=== PATIENT | male | born 1985 | race Caucasian/White ===

== ENCOUNTER 2022-02-07 13:47 | Emergency (ER) | payer MEDICARE, OTHER ==
[~2022-02-07] VITALS: Ht 185.4 cm; Wt 104.3 kg
[~2022-02-07 13:47] MED LIST: OMEP40CA PO
--- NOTE | 2022-02-07 14:10 | NUR ---
PT LAYING IN BED IN SEMIFOWLERS POSITION; A/O X4. VSS
[2022-02-07] MEDS ORDERED: diphenhydrAMINE 50 MG/1 ML VIAL ONE (14:11)
[2022-02-07] MEDS ORDERED: METHOCARBAMOL 500 MG TABLET ONE (14:11)
[2022-02-07] MEDS ORDERED: MAGNESIUM SULFATE/D5W 100 ML ONE ×2 (14:11→15:28)
[2022-02-07] MEDS ORDERED: METOCLOPRAMIDE HCL 10 MG/2 ML VIAL ONE (14:11)
[2022-02-07] MEDS ORDERED: diphenhydrAMINE 50 MG/1 ML VIAL IV ONE (14:15)
[2022-02-07] MEDS ORDERED: METHOCARBAMOL 500 MG TABLET PO ONE (14:15)
[2022-02-07] MEDS ORDERED: METOCLOPRAMIDE HCL 10 MG/2 ML VIAL IV ONE (14:15)
--- NOTE | 2022-02-07 14:28 | NUR ---
PT TO CT SCAN
[2022-02-07] MEDS: MAGNESIUM SULFATE/D5W 100 ML IV SCH ×3 (14:30→15:52)
--- NOTE | 2022-02-07 16:09 | NUR ---
pt states headache improved 6/10 throbbing. denies any other neuro symptoms. Pt reports no nausea and vomiting.
[2022-02-07 17:03] VITALS: BP 135/85
--- NOTE | 2022-02-07 17:03 | NUR ---
IV removed. Catheter intact and site benign. Pressure and 4x4 gauze applied to site. No bleeding noted.Patient discharged to home in stable condition. Written and verbal after care instructions given. Patient verbalizes understanding of instructions. Stressed follow up or return to ER for worsening s/s.
== END 2022-02-07 17:00 | disposition home or self-care (01) ==
LOC: ER 13:47
DX: S06.0X0A Concussion without loss of consciousness, initial encounter (principal); R40.2362 Coma scale, best motor response, obeys commands, at arrival to emergency department; R40.2142 Coma scale, eyes open, spontaneous, at arrival to emergency department; R40.2252 Coma scale, best verbal response, oriented, at arrival to emergency department; V43.62XA Car passenger injured in collision with other type car in traffic accident, initial encounter; Y92.410 Unspecified street and highway as the place of occurrence of the external cause; K58.9 Irritable bowel syndrome, unspecified; Z88.6 Allergy status to analgesic agent; Z88.8 Allergy status to other drugs, medicaments and biological substances; R03.0 Elevated blood-pressure reading, without diagnosis of hypertension; M48.02 Spinal stenosis, cervical region
CPT/HCPCS: 99285; 70450; 96365; 96375; 72125; J1200; J3475 ×2; J2765; A4663

== ENCOUNTER 2022-06-15 20:54 | Emergency (ER) | payer OTHER, MEDICARE ==
[~2022-06-15] VITALS: Ht 185.4 cm; Wt 102.1 kg
[2022-06-15] MEDS ORDERED: IBUPROFEN 800 MG TABLET PO ONE (22:00)
[2022-06-15] MEDS ORDERED: ONDANSETRON HCL 4 MG TABLET PO ONE (22:00)
[2022-06-15] MEDS ORDERED: ONDANSETRON HCL 4 MG TABLET ONE (22:11)
[2022-06-15] MEDS ORDERED: IBUPROFEN 800 MG TABLET ONE (22:11)
[2022-06-15] MEDS ORDERED: IBUP-1957 PO (23:18)
[2022-06-15] MEDS ORDERED: ONDA4TAB5 PO (23:18)
--- NOTE | 2022-06-15 23:48 | NUR ---
Patient discharged to home in stable condition. Written and verbal after care instructions given. Patient verbalizes understanding of instructions. Stressed follow up or return to ER for worsening s/s. Patient walked out with steady gait accompaqinied by his S/O.
[2022-06-16 03:14] VITALS: BP 128/85
== END 2022-06-15 23:49 | disposition home or self-care (01) ==
LOC: ER 20:54
DX: M54.2 Cervicalgia (principal); R51.9 Headache, unspecified; Z88.8 Allergy status to other drugs, medicaments and biological substances; Z79.1 Long term (current) use of non-steroidal anti-inflammatories (NSAID); Z79.899 Other long term (current) drug therapy; V49.9XXA Car occupant (driver) (passenger) injured in unspecified traffic accident, initial encounter; Y93.89 Activity, other specified; Y92.89 Other specified places as the place of occurrence of the external cause; Y99.8 Other external cause status
CPT/HCPCS: A4663; Q0162